=== PATIENT | female | born 1955 | race Caucasian/White ===

== ENCOUNTER → 2017-10-09 | Outpatient (CLI) | payer OTHER ==
--- NOTE | 2017-10-10 10:49 | MM ---
Reason for exam: screening (asymptomatic). Last mammogram was performed 1 year and 1 month ago. History: Patient is postmenopausal. Family history of premenopausal breast cancer in mother at age 63, breast cancer in paternal grandmother at age 30, and breast cancer in maternal grandmother. Benign cyst aspiration of the right breast, 1998. Took hormonal contraceptives for 2 years. Physical Findings: A clinical breast exam by your physician is recommended on an annual basis and results should be correlated with mammographic findings. MG 3D Screening Mammo W/Cad Bilateral CC and MLO view(s) were taken. Prior study comparison: September 11, 2016, bilateral MG 3d screening mammo w/cad. September 09, 2015, bilateral MG 3d screening mammo w/cad. The breast tissue is heterogeneously dense. This may lower the sensitivity of mammography. No suspicious abnormality. No significant changes when compared with prior studies. ASSESSMENT: Negative, BI-RAD 1 RECOMMENDATION: Routine screening mammogram of both breasts in 1 year.
== END | disposition home or self-care (01) ==
LOC: RADMAMWWP 13:54
PROVIDERS: ATTEND Family Medicine
DX: Z12.31 Encounter for screening mammogram for malignant neoplasm of breast (principal)
CPT/HCPCS: 77063; 77067

== ENCOUNTER → 2018-01-18 | Outpatient (CLI) | payer OTHER ==
--- NOTE | 2018-01-18 15:24 | BD ---
EXAMINATION TYPE: MG DEXA axial skeleton. DATE OF EXAM: 01/18/2018 COMPARISON: NONE CLINICAL HISTORY: 62 YR OLD FEMALE....ICD-10 CODE: Z78.0 POST MENOPAUSAL W/O HRT Height: 63.4 Weight: 167 FRAX RISK QUESTIONS: Alcohol (3 or more units per day): NO Family History (Parent hip fracture): NO Glucocorticoids (More than 3mos): NO (Ex: prednisone, prednisolone, methylprednisolone, dexamethasone, and hydrocortisone). History of Fracture in Adulthood: NO Secondary Osteoporosis: NO 1. Type 1 Diabetes: NO 2. Hyperthyroidism: NO 3. Menopause before 45: NO 4. Malnutrition: NO 5. Chronic liver disease: NO Rheumatoid Arthritis: NO Current Tobacco Use: NO RISK FACTORS HISTORY OF: Active: YES Diet low in dairy products/other sources of calcium: NO Postmenopausal woman: YES, AT 57 Lost more than 2 inches in height since high school: YES Frequent falls: YES Hyperparathyroidism: NO Adrenal Insufficiency: NO MEDICATIONS: Prednisone or other steroids: IN THE PAST INHALERS FOR SEASONAL DISORDERS Additional Medications: BP MEDS, XANAX, STATINS IN PAST FOR CHOLESTEROL, NATURAL PLANT STEROIDS, NSAI DS, TRAMADOL, OTESELA, Additional History: HYPERTENSION, PSORIATIC ARTHRITIS, OSTEOARTHROSIS, EXAM MEASUREMENTS: Bone mineral densitometry was performed using the [employer]. Bone mineral density as measured about the Lumbar spine is: ----- L1-L4(G/cm2): .1.289 T Score Values are as follows: ----- L1: 1.4 ----- L2: 0.3 ----- L3: 0.5 ----- L4: 1.3 ----- L1-L4: 0.9 Bone mineral density FIRST BONE DENSITY AT [facility] Bone mineral density about the R hip (g/cm2): 1.069 Bone mineral density about the L hip (g/cm2): 1.123 T Score values are as follows: -----R Neck: 0.2 -----L Neck: 0.8 -----R Total: 0.5 -----L Total: 0.9 Bone mineral density NEW TO [facility] FRAX%S: THERE IS A 5.8% CHANCE OF A MAJOR OSTEOPOROTIC FX AND A 0.1% FOR HIP FX.....PROBABILITY OF FX IN 10 YRS TIME IMPRESSION: Normal (Values between +1 and -1 indicate normal bone mass). Consider repeating this study in 5 year s or sooner if there is some new clinical indication. NOTE: T-SCORE=SD OF THE YOUNG ADULT MEAN.
== END | disposition home or self-care (01) ==
LOC: RADBDWWP 14:08
PROVIDERS: ATTEND Obstetrics & Gynecology Obstetrics
DX: Z78.0 Asymptomatic menopausal state (principal)
CPT/HCPCS: 77080

== ENCOUNTER → 2018-07-18 | Outpatient (CLI) | payer OTHER | END | disposition home or self-care (01) | LOC: RADECHMAIN 11:35 | PROVIDERS: ATTEND Family Medicine | DX: R00.2 Palpitations (principal) | CPT/HCPCS: 93270; 93271 ==

== ENCOUNTER → 2018-08-02 | Outpatient (CLI) | payer OTHER ==
--- NOTE | 2018-08-02 10:39 | ECHOS ---
STRESS ECHOCARDIOGRAM INDICATIONS: Chest pain. MEDICATIONS: Losartan HCTZ, metoprolol. Otezla, Xanax. BASELINE HEART RATE: 96 BASELINE BLOOD PRESSURE: 154/62 MAXIMUM HEART RATE: 162 MAXIMUM BLOOD PRESSURE: 200/84 85% MPHR: 136 100% MPHR: 160 METS: 7.0 MAXIMUM STAGE REACHED: 2 TOTAL EXERCISE TIME: 6:00 CLINICAL INFORMATION: Baseline EKG shows sinus rhythm, normal axis, normal intervals. Patient exercised on Terry protocol for a total of 6 minutes achieving 7 METS; 100% of predicted maximal heart rate without chest pain. At peak exercise, there was [address]- segment depression noted. Baseline echo shows normal left ventricular size, wall motion and systolic function. Postexercise, there is normal hyperdynamic response of all segments of myocardium noted. CONCLUSION: 1. Average exercise tolerance. 2. Abnormal stress test by EKG criteria. 3. Negative stress echo. MMODL / IJN: [id number] /
== END | disposition home or self-care (01) ==
LOC: RADNMMAIN 09:35
PROVIDERS: ATTEND Family Medicine
DX: R94.39 Abnormal result of other cardiovascular function study (principal); R00.2 Palpitations
CPT/HCPCS: 93351

== ENCOUNTER → 2018-12-13 | Outpatient (CLI) | payer OTHER ==
--- NOTE | 2018-12-16 12:08 | MM ---
Reason for exam: screening (asymptomatic). Last mammogram was performed 1 year and 2 months ago. History: Patient is postmenopausal. Family history of premenopausal breast cancer in mother at age 63, breast cancer in paternal grandmother at age 30, and breast cancer in maternal grandmother. Benign cyst aspiration of the right breast, 1998. Took hormonal contraceptives for 2 years. Physical Findings: A clinical breast exam by your physician is recommended on an annual basis and results should be correlated with mammographic findings. MG 3D Screening Mammo W/Cad Bilateral CC and MLO view(s) were taken. Prior study comparison: October 09, 2017, bilateral MG 3d screening mammo w/cad. September 11, 2016, bilateral MG 3d screening mammo w/cad. The breast tissue is heterogeneously dense. This may lower the sensitivity of mammography. No suspicious abnormality. No significant changes when compared with prior studies. ASSESSMENT: Negative, BI-RAD 1 RECOMMENDATION: Routine screening mammogram of both breasts in 1 year.
== END | disposition home or self-care (01) ==
LOC: RADMAMWWP 16:37
PROVIDERS: ATTEND Family Medicine
DX: Z12.31 Encounter for screening mammogram for malignant neoplasm of breast (principal)
CPT/HCPCS: 77063; 77067

== ENCOUNTER → 2019-04-23 | Outpatient (CLI) | payer OTHER ==
[2019-04-23 15:29] LABS: Basophils % (A) 1 %; Eosinophils # (A) 0.1 k/uL (0-0.7); Eosinophils % (A) 1 %; HCT 37.9 % (34.0-46.0); HGB 12.7 gm/dL (11.4-16.0); Lymphocytes # (A) 1.8 k/uL (1.0-4.8); Lymphocytes % (A) 38 %; MCH 31.5 pg (25.0-35.0); MCHC 33.5 g/dL (31.0-37.0); MCV 93.9 fL (80.0-100.0); Mean Platelet Volume 6.4; Monocytes # (A) 0.5 k/uL (0-1.0); Monocytes % (A) 10 %; Neutrophils # (A) 2.2 k/uL (1.3-7.7); Neutrophils % (A) 48 %; Platelet Count 312 k/uL (150-450); RBC 4.04 m/uL (3.80-5.40); RDW 13.5 % (11.5-15.5); WBC 4.7 k/uL (3.8-10.6)
[2019-04-23 20:49] LABS: Albumin 4.5 g/dL (3.80-4.90); Albumin/Globulin Ratio 2.25 (1.60-3.17); Anion Gap 12.2 mmol/L (4.00-12.00); BUN/Creat Ratio 16.67 Ratio (12.00-20.00); Calcium 9.6 mg/dL (8.7-10.3); Carbon Dioxide 25.8 mmol/L (21.6-31.8); Chol/HDL Ratio 2.62; LDL Cholesterol,Calculated 129.6 mg/dL (0.0-131.0); Non-African American GFR(CKD) 98.4 (60.0-200.0); Potassium 3.8 mmol/L (3.5-5.5); Total Bilirubin 0.7 mg/dL (0.2-1.2); Total Protein 6.5 g/dL (6.2-8.2); VLDL Calculation 19.4 mg/dL (5.00-40.00)
== END | disposition home or self-care (01) ==
LOC: LABWHC1 14:35
PROVIDERS: ATTEND Family Medicine
DX: Z00.00 Encounter for general adult medical examination without abnormal findings (principal); E78.5 Hyperlipidemia, unspecified
CPT/HCPCS: 36415; 80053; 80061; 83036; 84443; 85025

== ENCOUNTER → 2019-05-16 | Outpatient (CLI) | payer OTHER ==
[2019-05-16 19:12] LABS: African American GFR (CKD) 108.4 (60.0-200.0); Albumin 4.9 g/dL (3.80-4.90); Albumin/Globulin Ratio 2.04 (1.60-3.17); Anion Gap 10.8 mmol/L (4.00-12.00); BUN/Creat Ratio 32.86 Ratio (12.00-20.00); Calcium 10.2 mg/dL (8.7-10.3); Carbon Dioxide 31.2 mmol/L (21.6-31.8); Globulin 2.4 g/dL (1.6-3.3); Non-African American GFR(CKD) 93.5 (60.0-200.0); Total Bilirubin 0.5 mg/dL (0.2-1.2); Total Protein 7.3 g/dL (6.2-8.2)
== END | disposition home or self-care (01) ==
LOC: LABWHC1 13:31
PROVIDERS: ATTEND Family Medicine
DX: E87.1 Hypo-osmolality and hyponatremia (principal)
CPT/HCPCS: 36415; 80053

== ENCOUNTER 2019-09-08 13:17 | Day surgery (SDC) | payer OTHER ==
[2019-09-08 13:41] VITALS: TEMP 97.7
[2019-09-08] MEDS ORDERED: LIDOCAINE 1% 20 ML VIAL (10MG/ML) FOR IV START INTRADERMA ONE (13:41)
[2019-09-08] MEDS ORDERED: LACTATED RINGERS 1,000 ML IV ONE (13:41)
[2019-09-08] MEDS ORDERED: PROPOFOL 10 MG/ML 20 ML VIAL IV ONE (14:17)
--- NOTE | 2019-09-08 14:48 | P.PCN ---
Date of Procedure: 09/08/19 Description of Procedure: BRIEF HISTORY: Patient is a 63-year-old female presenting for outpatient colonoscopy given a family history of colon cancer. She reports her mother was diagnosed in her 60s with colon cancer. She is undergone a few colonoscopies in the past with the last approximately 5 years ago. She denies any change in bowel habits, abdominal pain and blood per rectum. PROCEDURE PERFORMED: Colonoscopy. PREOPERATIVE DIAGNOSIS: Family history of colon cancer, last colonoscopy approximately 5 years ago per history. ESTIMATED BLOOD LOSS: Minimal. IV sedation per Anesthesia. PROCEDURE: After informed consent was obtained, the patient, was brought into the endoscopy unit. IV sedation was administered by Anesthesia under continuous monitoring. Digital rectal examination was normal. Initially the Olympus CF-190 flexible video colonoscope was then inserted in the rectum, gradually advanced into the cecum without any difficulty. Careful examination was performed as the scope was gradually being withdrawn. Ileocecal valve and the appendiceal orifice were visualized and appeared normal. Prep was fair with copious amounts of stool throughout the colon which was lavaged. Mucosa of the cecum, ascending colon, transverse colon, descending colon, sigmoid colon, and rectum appeared normal, except for some mild scattered diverticula noted in the sigmoid colon. Retroflexion was performed in the rectum and no lesions were seen. The patient tolerated the procedure well. IMPRESSION: Normal-appearing colon from rectum to cecum. Mild sigmoid diverticulosis. RECOMMENDATIONS: Findings of this examination were discussed with the patient in her sister. Okay to resume diet and medications. Would recommend repeat colonoscopy in 3 years with two day prep.
[2019-09-08] MEDS ORDERED: LACTATED RINGERS 1,000 ML IV SCH (14:49)
[2019-09-08] MEDS ORDERED: LIDOCAINE 1% 20 ML VIAL (10MG/ML) FOR IV START INTRADERMA PRN (14:49)
[2019-09-08 15:01] VITALS: BP 139/84; PULSE 80; RESP 16
== END 2019-09-08 15:26 | disposition home or self-care (01) ==
LOC: ORWHC2ENDO 13:17
PROVIDERS: ATTEND Internal Medicine
DX: Z12.11 Encounter for screening for malignant neoplasm of colon (principal); K57.30 Diverticulosis of large intestine without perforation or abscess without bleeding; I10 Essential (primary) hypertension; Z79.899 Other long term (current) drug therapy; Z90.710 Acquired absence of both cervix and uterus; Z98.890 Other specified postprocedural states; Z80.0 Family history of malignant neoplasm of digestive organs
CPT/HCPCS: J2704; G0105

== ENCOUNTER → 2020-04-14 | Outpatient (CLI) | payer OTHER ==
--- NOTE | 2020-04-14 17:06 | CT ---
EXAMINATION TYPE: CT brain wo con DATE OF EXAM: 04/14/2020 COMPARISON: None HISTORY: Fall 2 weeks ago with right sided frontal injury. CT DLP: 1126.5 mGycm Automated exposure control for dose reduction was used. There is patchy hypodensity in the periventricular white matter. This is predominantly in the posteri or frontal and parietal lobes. Ventricles have normal size. There is no midline shift. There is no si gn of intracranial hemorrhage. There is bulbous appearance of the tip of the basilar artery that mayra ures 5 mm. IMPRESSION: White matter hypodensity probably due to chronic small vessel ischemia. No acute intracranial abnorma lity. No hemorrhage. 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
--- NOTE | 2020-04-14 17:16 | XR ---
EXAMINATION TYPE: XR orbit complete bilateral DATE OF EXAM: 04/14/2020 COMPARISON: NONE HISTORY: Fall. Pain. TECHNIQUE: 3 views FINDINGS: Orbital margins appear intact. There is normal aeration of the paranasal sinuses. There is no evidence of a blowout fracture. Maxilla appears intact. Sella turcica appears normal. IMPRESSION: Negative facial bone exam.
--- NOTE | 2020-04-14 17:18 | XR ---
EXAMINATION TYPE: XR facial bones complete DATE OF EXAM: 04/14/2020 COMPARISON: NONE HISTORY: Fall. Pain. TECHNIQUE: 3 views FINDINGS: Orbital margins are intact. There is normal aeration of the maxillary sinuses. There is no sign of blowout fracture. Maxilla is intact. Zygomatic arches appear intact. The nasal bone appears i ntact. Maxillary spine is intact. Mandible appears intact. IMPRESSION: Negative facial bone exam. No fracture seen.
--- NOTE | 2020-04-15 07:53 | XR ---
EXAMINATION TYPE: XR knee complete RT DATE OF EXAM: 04/14/2020 CLINICAL HISTORY: Fall injury 3 weeks ago with pain and tenderness. TECHNIQUE: Three views of the right knee are obtained. COMPARISON: None. FINDINGS: There is no acute fracture/dislocation evident in right knee. Mild to moderate tricompartm ent joint space loss greatest at level of medial tibiofemoral and patellofemoral compartments. Mild patellofemoral compartment spurring. Increased density suprapatellar bursa consistent with small join t effusion. IMPRESSION: As above.
== END | disposition home or self-care (01) ==
LOC: RADCTMAIN 16:34
PROVIDERS: ATTEND Family Medicine
DX: S00.83XA Contusion of other part of head, initial encounter (principal); I67.82 Cerebral ischemia; S09.90XA Unspecified injury of head, initial encounter
CPT/HCPCS: 70150; 70200; 70450

== ENCOUNTER → 2020-05-12 | Outpatient (CLI) | payer OTHER ==
[2020-05-12 15:27] LABS: Basophils % (A) 1 %; Eosinophils # (A) 0.1 k/uL (0-0.7); Eosinophils % (A) 2 %; HCT 38.3 % (34.0-46.0); HGB 12.6 gm/dL (11.4-16.0); Lymphocytes # (A) 1.7 k/uL (1.0-4.8); Lymphocytes % (A) 35 %; MCH 31.6 pg (25.0-35.0); MCHC 32.9 g/dL (31.0-37.0); MCV 96.1 fL (80.0-100.0); Mean Platelet Volume 6.5; Monocytes # (A) 0.3 k/uL (0-1.0); Monocytes % (A) 6 %; Neutrophils # (A) 2.6 k/uL (1.3-7.7); Neutrophils % (A) 54 %; Platelet Count 253 k/uL (150-450); RBC 3.98 m/uL (3.80-5.40); WBC 4.8 k/uL (3.8-10.6)
[2020-05-13 01:29] LABS: Hemoglobin A1C 5.6 % (4.0-6.0)
[2020-05-13 02:02] LABS: African American GFR (CKD) 120.2 (60.0-200.0); Albumin 4.6 g/dL (3.80-4.90); Albumin/Globulin Ratio 1.92 (1.60-3.17); Anion Gap 9.7 mmol/L (4.00-12.00); Calcium 9.5 mg/dL (8.7-10.3); Carbon Dioxide 26.3 mmol/L (21.6-31.8); Chol/HDL Ratio 2.5; Globulin 2.4 g/dL (1.6-3.3); LDL Cholesterol,Calculated 113.8 mg/dL (0.0-131.0); Non-African American GFR(CKD) 103.7 (60.0-200.0); Total Bilirubin 0.7 mg/dL (0.2-1.2); VLDL Calculation 21.2 mg/dL (5.00-40.00)
== END | disposition home or self-care (01) ==
LOC: LABWHC1 14:23
PROVIDERS: ATTEND Family Medicine
DX: Z00.00 Encounter for general adult medical examination without abnormal findings (principal)
CPT/HCPCS: 36415; 80053; 80061; 83036; 84443; 85025

== ENCOUNTER → 2020-05-13 | Outpatient (CLI) | payer OTHER ==
--- NOTE | 2020-05-13 16:45 | CT ---
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 TECHNIQUE: Contiguous axial scanning of the brain performed with IV Contrast, patient injected with 1 00ml mL of Isovue 370. Coronal/sagittal MIP reconstructions performed. 3-D reconstructions generated on a dedicated independent workstation. CT DLP: 990.7 mGycm Automated exposure control for dose reduction was used. FINDINGS: Moderate mucosal thickening floor of the right maxillary sinus. Mild to moderate mucosal thickening a nterior left ethmoid air cells. Vertebral and basilar arteries are patent. There is 5 mm fusiform prominence to the top of the basila r artery. Posterior circulation appears patent. Internal carotid arteries are patent as is the remainder of the anterior circulation. No aneurysmal change is otherwise seen. IMPRESSION: 1. 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 2. NO OTHER ANEURYSMAL CHANGE IS SEEN. 3. NO LARGE VESSEL INTRACRANIAL ARTERIAL OCCLUSION OR SIGNIFICANT STENOSIS IDENTIFIED.
== END | disposition home or self-care (01) ==
LOC: RADCTMAIN 15:06
PROVIDERS: ATTEND Nurse Practitioner Adult Health
DX: I72.5 Aneurysm of other precerebral arteries (principal)
CPT/HCPCS: 70496; Q9967

== ENCOUNTER → 2020-06-28 | Outpatient (CLI) | payer OTHER ==
[2020-06-29 04:17] LABS: Folate, Serum >24.0 ng/mL
--- NOTE | 2020-06-29 13:19 | MM ---
Reason for exam: screening (asymptomatic). Last mammogram was performed 1 year and 6 months ago. History: Patient is postmenopausal. Family history of premenopausal breast cancer in mother at age 63, breast cancer in paternal grandmother at age 30, and breast cancer in maternal grandmother. Benign cyst aspiration of the right breast, 1998. Took hormonal contraceptives for 2 years. Physical Findings: A clinical breast exam by your physician is recommended on an annual basis and results should be correlated with mammographic findings. MG 3D Screening Mammo W/Cad Bilateral CC and MLO view(s) were taken. Prior study comparison: December 13, 2018, bilateral MG 3d screening mammo w/cad. October 09, 2017, bilateral MG 3d screening mammo w/cad. There are scattered fibroglandular densities. There are benign appearing round calcifications in the left breast. There is no discrete abnormality. ASSESSMENT: Benign, BI-RAD 2 RECOMMENDATION: Routine screening mammogram of both breasts in 1 year.
== END | disposition home or self-care (01) ==
LOC: RADMAMWWP 13:36
PROVIDERS: ATTEND Family Medicine
DX: Z12.31 Encounter for screening mammogram for malignant neoplasm of breast (principal); R42 Dizziness and giddiness
CPT/HCPCS: 77063; 77067; 82306; 82607; 82746; 84443

== ENCOUNTER → 2020-07-21 | Outpatient (CLI) | payer OTHER ==
--- NOTE | 2020-07-22 15:55 | MR ---
EXAMINATION TYPE: MR cervical spine wo con DATE OF EXAM: 07/21/2020 COMPARISON: HISTORY: DIZZINESS, LIGHT HEADED, HEADACHES TECHNIQUE: Multiplanar, multisequence images of the cervical spine were acquired. C2-C3: There is some facet arthropathy change encroaching upon the right neural foramen, no evident d isc herniation. No spinal stenosis. C3-C4: Posterior broad-based disc bulge causes anterior mass effect on the thecal sac. Uncovertebral joint hypertrophy facet arthropathy produces neural foramen size on the left greater than right. No s ignificant spinal stenosis. C4-C5: Posterior broad-based disc bulge, extension of endplate disc complex causes anterior mass effe ct on the thecal sac and produces some mild spinal stenosis. There is foraminal encroachment bilatera lly. C5-C6: Spinal stenosis is greatest at this level, mild to moderate, uncovertebral joint hypertrophy f acet arthropathy results in foraminal encroachment bilaterally. C6-C7: Posterior extension endplate disc complex results in mild to moderate spinal stenosis. Uncover tebral joint hypertrophy and facet arthropathy causes bilateral foraminal encroachment. C7-T1: No evidence for degenerative disc disease. No disc bulge/herniation or protrusion. No Canal stenosis. Foramina are patent bilaterally. Cervical segments are intact. There is normal alignment. Cervical spinal cord is of normal signal. Craniovertebral junction relationships are within normal limits. There is multilevel spondylosis. C ervical vertebral bodies show preserved height. Minimal retrolisthesis grade 1 C4-5, C5-6 and C6-7. E ndplate discogenic marrow signal changes present, there is loss of disc height C3-4, C4-5 and C5-6, C 6-7. IMPRESSION: Degenerative disc disease, facet arthropathy, multilevel foraminal encroachment.
--- NOTE | 2020-07-22 15:58 | MR ---
EXAMINATION TYPE: MR brain wo/w con DATE OF EXAM: 07/21/2020 COMPARISON: HISTORY: DIZZINESS, LIGHT HEADED, HEADACHES TECHNIQUE: Multiplanar, multisequence images of the brain and brainstem is performed without and with IV contras t, utilizing 7.5 mL intravenous Gadavist . FINDINGS: Diffusion weighted images demonstrate no evidence of a recent infarct or other diffusion ab normality. There is no extra-axial fluid collection. There is scattered and confluent hyperintensity within the periventricular, subcortical, pericallosal white matter on inversion recovery T2-weighted sequences. Small focus of encephalomalacia present in the basal ganglia on the left. The ventricular system and cisternal spaces are normal in size and appearance. The brain volume is age appropriate. Midline structures demonstrate normal morphology. The craniocervical junction appears within normal limits. Post contrast images demonstrate no abnormal enhancement. The dural venous sinuses appear pa tent. The visualized sinuses are remarkable for mucoperiosteal thickening in the bilateral maxillary sinuses, ethmoid air cells and sphenoid and frontal sinus and the globes are intact. IMPRESSION: White matter demyelination may be due to chronic small vessel ischemic change. Sinus dise ase.
== END | disposition home or self-care (01) ==
LOC: RADMRIMAIN 17:11
DX: M50.00 Cervical disc disorder with myelopathy, unspecified cervical region (principal); M47.892 Other spondylosis, cervical region; F07.81 Postconcussional syndrome; R90.82 White matter disease, unspecified
CPT/HCPCS: 70553; 72141; A9585

== ENCOUNTER → 2020-11-20 | Outpatient (CLI) | payer OTHER ==
--- NOTE | 2020-11-22 14:36 | BMR ---
EXAMINATION TYPE: MR breast BILAT wo/w con DATE OF EXAM: 11/20/2020 COMPARISON: 3-D bilateral breast mammogram December 13, 2018 BI-RADS 1. HISTORY: Family Hx of breast cancer, tenderness not further specified TECHNIQUE: A series of fat and water weighted images in the long and short axis views of both breasts are obtained in conjunction with dynamic contrast MRI with subtraction technique. The patient was i njected with 7.5 mL intravenous Gadavist gadolinium contrast. Three-dimensional and additional post processing imaging is created on independent workstation and reviewed during official interpretation of this study. FINDINGS: Scattered fibroglandular tissue bilaterally is redemonstrated greatest in the subareolar re gions. No suspicious axillary adenopathy is seen. No significant cystic changes identified on T2 or S TIR-weighted images. Delayed dynamic postcontrast imaging shows no suspicious internal mammary adenop athy bilaterally. Early phased imaging shows mild symmetric background fibroglandular enhancement. No suspicious skin thickening is seen in either breast. No pathologic enhancement or enhancing masses are noted. Chest wall is intact bilaterally. No suspicious incidental finding. IMPRESSION: No MRI evidence for invasive malignancy in either breast. BI-RADS 2 benign findings right breast BI-RADS 2 benign findings left breast Recommendation: Annual bilateral breast mammogram. Patient is due June 2021 for annual exam. Manag e patient's symptoms of pain on clinical basis.
== END | disposition home or self-care (01) ==
LOC: RADMRIMAIN 13:39
PROVIDERS: ATTEND Obstetrics & Gynecology Obstetrics
DX: Z80.3 Family history of malignant neoplasm of breast (principal)
CPT/HCPCS: 77049; C8937; A9585

== ENCOUNTER → 2021-06-17 | Outpatient (CLI) | payer OTHER ==
[2021-06-17 19:04] LABS: Basophils # (A) 0.02 X 10*3/uL (0.00-0.10); Basophils % (A) 0.5 %; Eosinophils # (A) 0.06 X 10*3/uL (0.04-0.35); Eosinophils % (A) 1.4 %; HCT 38.8 % (37.2-46.3); HGB 12.9 g/dL (12.0-15.0); Lymphocytes # (A) 1.62 X 10*3/uL (0.90-5.00); Lymphocytes % (A) 36.6 %; MCH 32.3 pg (27.0-32.0); MCHC 33.2 g/dL (32.0-37.0); Mean Platelet Volume 8.7 fL (9.5-12.2); Monocytes # (A) 0.59 X 10*3/uL (0.20-1.00); Monocytes % (A) 13.3 %; Neutrophils # (A) 2.13 X 10*3/uL (1.80-7.70); Platelet Count 268 X 10*3/uL (140-440); RDW 11.6 % (11.5-14.5); WBC 4.43 X 10*3/uL (4.50-10.00)
[2021-06-17 19:55] LABS: Hemoglobin A1C 5.6 % (4.0-6.0)
[2021-06-17 22:43] LABS: T4, Free (Free Thyroxine) 1.1 ng/dL (0.80-1.80)
[2021-06-18 00:18] LABS: African American GFR (CKD) 112.4 (60.0-200.0); Albumin 5.1 g/dL (3.80-4.90); Albumin/Globulin Ratio 1.96 (1.60-3.17); Anion Gap 10.5 mmol/L (4.00-12.00); BUN/Creat Ratio 23.33 Ratio (12.00-20.00); Calcium 10.3 mg/dL (8.7-10.3); Carbon Dioxide 27.5 mmol/L (21.6-31.8); Chol/HDL Ratio 3.37; Globulin 2.6 g/dL (1.6-3.3); Potassium 4.2 mmol/L (3.5-5.5); Total Bilirubin 0.8 mg/dL (0.3-1.2); Total Protein 7.7 g/dL (6.2-8.2)
== END | disposition home or self-care (01) ==
LOC: LABWHC1 11:15
PROVIDERS: ATTEND Nurse Practitioner Adult Health
DX: Z13.1 Encounter for screening for diabetes mellitus (principal); I10 Essential (primary) hypertension
CPT/HCPCS: 36415; 80053; 80061; 83036; 84439; 84443; 85025

== ENCOUNTER → 2021-08-05 | Outpatient (CLI) | payer OTHER ==
--- NOTE | 2021-08-10 09:18 | MM ---
Reason for exam: screening (asymptomatic). Last mammogram was performed 1 year and 1 month ago. History: Patient is postmenopausal. Family history of premenopausal breast cancer in mother at age 63, breast cancer in paternal grandmother at age 30, and breast cancer in maternal grandmother. Benign cyst aspiration of the right breast, 1998. Took hormonal contraceptives for 2 years. Physical Findings: A clinical breast exam by your physician is recommended on an annual basis and results should be correlated with mammographic findings. MG 3D Screening Mammo W/Cad Bilateral CC and MLO view(s) were taken. Prior study comparison: November 20, 2020, bilateral MR breast bilat wo/w con. June 28, 2020, bilateral MG 3d screening mammo w/cad. December 13, 2018, bilateral MG 3d screening mammo w/cad. October 09, 2017, bilateral MG 3d screening mammo w/cad. There are scattered fibroglandular densities. There is chronic nodularity in the right subareolar breast. No significant changes when compared with prior studies. ASSESSMENT: Benign, BI-RAD 2 RECOMMENDATION: Routine screening mammogram of both breasts in 1 year. Patient should continue monthly self breast exams. A negative report should not preclude additional follow up of suspicious palpable abnormalities.
== END | disposition home or self-care (01) ==
LOC: RADMAMWWP 13:39
PROVIDERS: ATTEND Family Medicine
DX: Z12.31 Encounter for screening mammogram for malignant neoplasm of breast (principal); Z80.3 Family history of malignant neoplasm of breast; Z78.0 Asymptomatic menopausal state
CPT/HCPCS: 77063; 77067

== ENCOUNTER → 2023-03-07 | Outpatient (CLI) | payer MEDICARE ==
--- NOTE | 2023-03-08 08:04 | MM ---
Reason for Exam: Screening (asymptomatic). Last mammogram was performed 1 year(s) and 7 month(s) ago. Patient History: Menarche at age 14. First Full-Term at age 24. Hysterectomy at age 33. Postmenopausal. Patient used Hormonal Contraceptives for 2 years. 1998, Benign Cyst Aspiration on the right side. Paternal grandmother had breast cancer, age 30. Maternal grandmother had breast cancer. Mother had breast cancer, age 63. Risk Values: Judith 5 year model risk: 3.2%. NCI Lifetime model risk: 11.7%. Prior Study Comparison: 12/13/2018 Bilateral Screening Mammogram, [facility]. 06/28/2020 Bilateral Screening Mammogram, [facility]. 08/05/2021 Bilateral Screening Mammogram, [facility]. Tissue Density: There are scattered fibroglandular densities. Findings: Analyzed By CAD. There is no suspicious group of microcalcifications or new suspicious mass in either breast. Chronic nodularity within the right breast. Overall Assessment: Benign, BI-RAD 2 Management: Screening Mammogram of both breasts in 1 year. A clinical breast exam by your physician is recommended on an annual basis and results should be correlated with mammographic findings. Note on Judith scores and lifetime risk: 1. A Judith score greater than 3% is considered moderate risk. If this is the case, consider specialist referral to assess eligibility for a risk reducing agent. If overall lifetime risk for the development of breast cancer is 20% or higher, the patient may qualify for future screening with alternating mammogram and breast MRI. Electronically signed and approved by: Esdras Loja D.O.
== END | disposition home or self-care (01) ==
LOC: RADMAMWWP 16:53
PROVIDERS: ATTEND Family Medicine
DX: Z12.31 Encounter for screening mammogram for malignant neoplasm of breast (principal); Z78.0 Asymptomatic menopausal state; Z80.3 Family history of malignant neoplasm of breast
CPT/HCPCS: 77063; 77067

== ENCOUNTER 2023-07-25 10:08 | Day surgery (SDC) | payer MEDICARE ==
[~2023-07-25 10:08] MED LIST: LIDOCAINE 1% (10MG/ML) FOR IV START INTRADERMA PRN
[2023-07-25] MEDS: LACTATED RINGERS 1,000 ML IV SCH ×2 (13:17→13:57)
[2023-07-25 13:26] VITALS: TEMP 97.4
[2023-07-25] MEDS ORDERED: PROPOFOL 10 MG/ML 20 ML VIAL IV ONE (13:57)
[2023-07-25] MEDS ORDERED: LIDOCAINE 2% (PF) 20 MG/ML 5 ML VIAL ONE (13:57)
--- NOTE | 2023-07-25 14:12 | P.PCN ---
Date of Procedure: 07/25/23 Procedure(s) Performed: BRIEF HISTORY: Patient is a 67-year-old pleasant white female scheduled for an elective colonoscopy as a part of screening for colon cancer and family history of colon cancer. Her mother was diagnosed with colon cancer at age 65. PROCEDURE PERFORMED: Colonoscopy. PREOPERATIVE DIAGNOSIS: Screening for colon cancer and family history of colon cancer. IV sedation per Anesthesia. PROCEDURE: After informed consent was obtained, the patient, was brought into the endoscopy unit. IV sedation was administered by Anesthesia under continuous monitoring. Digital rectal examination was normal. Initially the Olympus CF-160 flexible video colonoscope was then inserted in the rectum, gradually advanced into the cecum without any difficulty. Careful examination was performed as the scope was gradually being withdrawn. Ileocecal valve and the appendiceal orifice were visualized and appeared normal. Prep was excellent. Mucosa of the cecum, ascending colon, transverse colon, descending colon, sigmoid colon, and rectum appeared normal. Retroflexion was performed in the rectum and no lesions were seen. The patient tolerated the procedure well. IMPRESSION: Normal-appearing colon from rectum to cecum with no evidence of colorectal neoplasia. RECOMMENDATIONS: Findings of this examination were discussed with the patient as well as a family. She was advised to have a repeat screening colonoscopy in 5 years because of the family history of colon cancer.
[2023-07-25 14:55] VITALS: BP 167/76; PULSE 75; RESP 20
== END 2023-07-25 15:09 ==
LOC: ORWHC2ENDO 10:08
PROVIDERS: ATTEND Internal Medicine Gastroenterology
DX: Z12.11 Encounter for screening for malignant neoplasm of colon (principal); I10 Essential (primary) hypertension; K21.9 Gastro-esophageal reflux disease without esophagitis; J45.909 Unspecified asthma, uncomplicated; M19.90 Unspecified osteoarthritis, unspecified site; Z80.0 Family history of malignant neoplasm of digestive organs; Z88.8 Allergy status to other drugs, medicaments and biological substances; Z79.899 Other long term (current) drug therapy; Z79.82 Long term (current) use of aspirin
CPT/HCPCS: J2704; J2001; G0105

== ENCOUNTER → 2024-06-10 | Outpatient (CLI) | payer MEDICARE ==
--- NOTE | 2024-06-12 08:31 | MM ---
Reason for Exam: Screening (asymptomatic). Last mammogram was performed 1 year(s) and 3 month(s) ago. Patient History: Menarche at age 14. First Full-Term at age 24. Hysterectomy at age 33. Postmenopausal. Patient used Hormonal Contraceptives for 2 years. 1998, Benign Cyst Aspiration on the right side. Paternal grandmother had breast cancer, age 30. Maternal grandmother had breast cancer. Mother had breast cancer, age 63. Risk Values: Judith 5 year model risk: 3.2%. NCI Lifetime model risk: 11.3%. Prior Study Comparison: 06/28/2020 Bilateral Screening Mammogram, [facility]. 08/05/2021 Bilateral Screening Mammogram, [facility]. 03/07/2023 Bilateral MG 3D screening mammo w/cad, [facility]. Tissue Density: There are scattered areas of fibroglandular density. Findings: Analyzed By CAD. Right breast: There is no suspicious group of microcalcifications or new suspicious mass. Left breast: There is no suspicious group of microcalcifications or new suspicious mass. Overall Assessment: Negative, BI-RAD 1 Management: Screening Mammogram of both breasts in [address] [facility] will attempt to contact patient to return for supplemental views and ultrasound if indicated. Patient should continue monthly self-breast exams. A clinical breast exam by your physician is recommended on an annual basis. This exam should not preclude additional follow-up of suspicious palpable abnormalities. Note on Judith scores and lifetime risk: 1. A Judith score greater than 3% is considered moderate risk. If this is the case, consider specialist referral to assess eligibility for a risk reducing agent. 2. If overall lifetime risk for the development of breast cancer is 20% or higher, the patient may qualify for future screening with alternating mammogram and breast MRI. [facility], , 06/12/2024 8:28 AM. Electronically signed and approved by: French Dong DO
== END | disposition home or self-care (01) ==
LOC: RADMAMWWP 14:11
PROVIDERS: ATTEND Family Medicine
DX: Z12.31 Encounter for screening mammogram for malignant neoplasm of breast
CPT/HCPCS: 77063; 77067